=== PATIENT | male | born 1985 | race Caucasian/White ===

== ENCOUNTER 2021-10-14 17:52 | Emergency (ER) | payer OTHER ==
[~2021-10-14] VITALS: Ht 188 cm; Wt 104.5 kg
[2021-10-14] MEDS ORDERED: METH4TAB2 PO (18:52)
[2021-10-14] MEDS ORDERED: CYCL5TAB PO (18:52)
--- NOTE | 2021-10-14 18:53 | PHYS DOC ---
Past History Additional Past Medical Histor: HERINATED DISC (EDGAR GARDNER APRN) Past Surgical History: No Surgical History (EDGAR GARDNER APRN) General Adult EDM: Chief Complaint: BACK PAIN OR INJURY HPI: HPI: Patient is a 36-year-old male who presents to the emergency department for left lower back pain. He denies any pain at rest but reports pain that is worse with movement and bearing weight. He reports he has a history of chronic back pain due to herniated disc that he has been to physical therapy. He took 800 mg of ibuprofen and 3 of his 500 mg naproxen prior to arrival. Patient states that he tweaked his back while doing a squat at the gym. Patient denies saddle anesthesias, loss of bowel or bladder, dysuria, radiation of pain. (EDGAR GARDNER APRN) Review of Systems: Review of Systems: GI: See HPI : See HPI Musculoskeletal: See HPI Integument: Denies wounds Neurologic: See HPI (EDGAR GARDNER APRN) Allergies: Allergies: Allergies Coded Allergies Type Severity Reaction Last Updated Verified No Known Drug Allergies 10/14/21 No (EDGAR GARDNER APRN) Physical Exam: PE: Constitutional: Well developed, well nourished, no acute distress, non-toxic appearance. [] HENT: Normocephalic, atraumatic, bilateral external ears normal, oropharynx moist, no oral exudates, nose normal. [] Eyes: PERRL, EOMI, conjunctiva normal, no discharge. [] Neck: Normal range of motion, no tenderness, supple, no stridor. [] Cardiovascular: Normal peripheral perfusion Lungs & Thorax: Normal work of breathing, no tachypnea Abdomen: Soft and flat Skin: Warm, dry, no erythema, no rash. [] Back: No bony spinal tenderness, no CVA tenderness. [] Extremities: No tenderness, no cyanosis, no clubbing, ROM intact, no edema. [] Neurologic: Alert and oriented X 3, normal motor function, normal sensory function, no focal deficits noted. [] Psychologic: Affect normal, judgement normal, mood normal. [] (EDGAR GARDNER APRN) Current Patient Data: Vital Signs: Vital Signs Date Time Temp Pulse Resp B/P (MAP) Pulse Ox O2 Delivery O2 Flow Rate FiO2 10/14/21 18:35 97.7 62 18 136/85 (102) 98 Room Air (EDGAR GARDNER APRN) EKG: EKG: [] (EDGAR GARDNER APRN) Radiology/Procedures: Radiology/Procedures: [] (EDGAR GARDNER APRN) Heart Score: C/O Chest Pain: N/A Risk Factors: Risk Factors: DM, Current or recent (<one month) smoker, HTN, HLP, family history of CAD, obesity. Risk Scores: Score 0 - 3: 2.5% MACE over next 6 weeks - Discharge Home Score 4 - 6: 20.3% MACE over next 6 weeks - Admit for Clinical Observation Score 7 - 10: 72.7% MACE over next 6 weeks - Early Invasive Strategies (EDGAR GARDNER APRN) Course & Med Decision Making: Course & Med Decision Making Pertinent Labs and Imaging studies reviewed. (See chart for details) [] Patient presents to the emergency department for low back pain after squatting at the gym. I offered patient CT imaging which he declined. Patient reports he has a history of a herniated disc and chronic back pain and occasionally will tweak it and have to go to the ER for management. Patient be treated with Toradol and orphenadrine. He has no cauda equina symptoms. He will be discharged home with a steroid Dosepak and a muscle relaxer. I discussed with patient all findings and diagnostic testing as well as the need to follow-up with PCP for further evaluation and treatment or return to the ER if any new or worsening symptoms. Strict return precautions were also discussed at length. Patient voiced understanding and agreement with the plan. Patient is hemodynamically stable at the time of disposition. (EDGAR GARDNER APRN) Dragon Disclaimer: Dragon Disclaimer: This electronic medical record was generated, in whole or in part, using a voice recognition dictation system. (EDGAR GARDNER APRN) Departure Departure: Impression: Primary Impression: Back pain Qualified Codes: M54.50 - Low back pain, unspecified Disposition: HOME / SELF CARE / HOMELESS Condition: GOOD Referrals: VANESSA GARCIA (PCP) Patient Instructions: Back Pain, Adult Additional Instructions: You were seen in the emergency department today for back pain. You can take anti-inflammatory medications like ibuprofen at home for your pain. You are being discharged home with a steroid Dosepak which will help with inflammation. You are also being discharged home with a muscle relaxer. This medication may cause sedation so do not take any need to be alert, driving a vehicle or with alcohol. Please follow-up with your primary care provider tomorrow. Return to the emergency department if you develop worsening of your back pain, inability to bear weight or walk, loss of bowel or bladder, numbness or tingling in your groin or down your legs. Scripts Cyclobenzaprine Hcl (CYCLOBENZAPRINE HCL) 5 Mg Tablet 1 TAB PO TID for MUSCLE SPASM for 7 Days, #21 TAB 0 Refills Prov: EDGAR GARDNER APRN 10/14/21 Methylprednisolone (MEDROL) 4 Mg Tab.ds.pk 1 PKG PO UD for INFLAMMATION, #1 PKG 0 Refills Prov: EDGAR GARDNER APRN 10/14/21 Attending Signature Attending Signature I have participated in the care of this patient and I have reviewed and agree with all pertinent clinical information above including history, exam, and recommendations. (JESSEE GUTIERREZ MD) Dragon Disclaimer This chart was dictated in whole or in part using Voice Recognition software in a busy, high-work load, and often noisy Emergency Department environment. It may contain unintended and wholly unrecognized errors or omissions. (JESSEE GUTIERREZ MD) EDGAR GARDNER APRN October 14, 2021 18:53 JESSEE GUTIERREZ MD October 16, 2021 17:58
[2021-10-14] MEDS ORDERED: ORPHENADRINE CITRATE 60 MG/2 ML VIAL. IM ONE (19:00)
[2021-10-14] MEDS ORDERED: KETOROLAC 60 MG/2 ML VIAL. IM ONE (19:00)
[2021-10-14 20:02] VITALS: BP 128/72
== END 2021-10-14 20:05 | disposition home or self-care (01) ==
LOC: ER 17:52
DX: M54.59 Other low back pain (principal); G89.29 Other chronic pain
CPT/HCPCS: 96372; 99284; J1885; J2360